=== PATIENT | male | born 1990 | race Caucasian/White ===

== ENCOUNTER 2016-09-24 13:54 | Emergency (ER) | payer SELFPAY ==
[2016-09-24 14:41] VITALS: BMI 25.0
[2016-09-24 14:45] VITALS: BP 114/76; PULSE 62; RESP 18; TEMP 98.1; O2SAT 98
--- NOTE | 2016-09-24 14:58 | ED PDOC ---
Arrival/HPI - General Chief Complaint: Lower Extremity Problem/Injury Time Seen by Provider: 09/24/16 14:57 Historian: Patient - History of Present Illness Narrative History of Present Illness (Text): 09/24/16 14:57 Patient was waiting in ER waiting room for 55 minutes, prior coming to [facility]. 09/24/16 15:08 This 26 yo male , with psh left knee surgery, presents to this ED c/o left knee swelling and painful x 4 days. Patient denies trauma, skin rash, weakness , paresthesias, or abnormal gait. Time/Duration: Other (4 days) Quality: Aching Context: Home Past Medical History - Provider Review Nursing Documentation Reviewed: Yes - Infectious Disease Hx of Infectious Diseases: None - Pulmonary Hx Asthma: Yes - Musculoskeletal/Rheumatological Other/Comment: L Leg surgery - Psychiatric Hx Substance Use: No - Surgical History Hx Orthopedic Surgery: Yes - Anesthesia Hx Anesthesia: Yes Hx Anesthesia Reactions: No Hx Malignant Hyperthermia: No Family/Social History - Physician Review Nursing Documentation Reviewed: Yes Family/Social History: No Known Family HX Smoking Status: Never Smoked Hx Alcohol Use: No Hx Substance Use: No Allergies/Home Meds Allergies/Adverse Reactions: Allergies No Known Allergies Allergy (Verified 09/24/16 14:41) Review of Systems - Review of Systems Constitutional: Normal. absent: Fatigue, Weight Change, Fevers, Night Sweats Eyes: Normal ENT: Normal Respiratory: Normal. absent: SOB, Cough Cardiovascular: Normal. absent: Chest Pain Gastrointestinal: Normal. absent: Abdominal Pain, Nausea, Vomiting Genitourinary Male: Normal. absent: Hematuria Musculoskeletal: Normal Skin: Other (left knee pain and swelling.) Neurological: Normal Endocrine: Normal Hemo/Lymphatic: Normal Psychiatric: Normal Physical Exam Vital Signs Temp Pulse Resp BP Pulse Ox 09/24/16 14:44 98.1 F 62 18 114/76 98 Temperature: Afebrile Blood Pressure: Normal Pulse: Regular Respiratory Rate: Normal Appearance: Positive for: Well-Appearing, Non-Toxic, Comfortable Pain Distress: None Mental Status: Positive for: Alert and Oriented X 3 - Systems Exam Head: Present: Atraumatic, Normocephalic Pupils: Present: PERRL Extroacular Muscles: Present: EOMI Conjunctiva: Present: Normal Mouth: Present: Moist Mucous Membranes Neck: Present: Normal Range of Motion Respiratory/Chest: Present: Clear to Auscultation, Good Air Exchange. No: Respiratory Distress, Accessory Muscle Use Cardiovascular: Present: Regular Rate and Rhythm, Normal S1, S2. No: Murmurs Abdomen: Present: Normal Bowel Sounds. No: Tenderness, Distention, Peritoneal Signs Back: Present: Normal Inspection Upper Extremity: Present: Normal Inspection, Normal ROM, Neurovascularly Intact , Capillary Refill < 2s. No: Cyanosis, Edema Lower Extremity: Present: NORMAL PULSES, Normal ROM, Tenderness, Swelling, Neurovascularly Intact, Capillary Refill < 2 s, Other (Left anterior knee has a scar . no erythema, or skin lesion. No septic knee joit.). No: Edema, CALF TENDERNESS, Cyanosis, Yasmin's Sign, Erythema, Temperature Abnormalties Neurological: Present: GCS=15, CN II-XII Intact, Speech Normal Skin: Present: Warm, Dry, Normal Color. No: Rashes Psychiatric: Present: Alert, Oriented x 3, Normal Insight, Normal Concentration Medical Decision Making - RAD Interpretation Radiology Orders: 09/24/16 15:07 KNEE WITH PATELLA LEFT 3 VIEW [RAD] Stat - Medication Orders Current Medication Orders: Discontinued Medications Ketorolac Tromethamine (Toradol) 30 mg IM STAT STA Stop: 09/24/16 15:08 Last Admin: 09/24/16 15:25 Dose: 30 mg Disposition/Present on Arrival - Present on Arrival Any Indicators Present on Arrival: No History of DVT/PE: No History of Uncontrolled Diabetes: No Urinary Catheter: No History of Decub. Ulcer: No History Surgical Site Infection Following: None - Disposition Have Diagnosis and Disposition been Completed?: Yes Diagnosis: Knee pain Disposition: HOME/ ROUTINE Disposition Time: 16:26 Patient Plan: Discharge Condition: GOOD Discharge Instructions (ExitCare): Knee Sprain (ED) Additional Instructions: Call private doctor for follow up visit in 1-2 days. Keep knee elevated, ice, rest, micheal for at least 5 days. Remove micheal bandage at bedtime. Return to emergency if symptoms worsen. Prescriptions: Famotidine [Pepcid] 40 mg PO DAILY #10 tablet Naproxen 500 mg PO BID #14 tab Referrals: PCP,NO [Primary Care Provider] - Follow up with primary Jcarlos Ramires DO [Staff Provider] - Follow up with primary Minal Pennington MD [Staff Provider] - Follow up with primary Forms: WORK NOTE
--- NOTE | 2016-09-24 16:30 | RAD ---
PROCEDURE: Left Knee Radiographs. HISTORY: Pain. COMPARISON: None. FINDINGS: BONES: Normal. No fracture. JOINTS: Normal. No osteoarthritis. JOINT EFFUSION: None. OTHER FINDINGS: The patella is unremarkable. Surgical hardware is seen in the proximal tibia IMPRESSION: Normal radiographs of the left knee.
== END 2016-09-24 16:31 | disposition home or self-care (01) ==
LOC: ED 13:54
DX: M25.562 Pain in left knee (principal)
CPT/HCPCS: 73562; 96372; 99283; J1885

== ENCOUNTER 2017-04-09 21:41 | Emergency (ER) | payer SELFPAY ==
[2017-04-09 21:42] VITALS: BMI 25.0
[2017-04-09 22:37] VITALS: RESP 18; O2SAT 99
--- NOTE | 2017-04-09 22:42 | ED PDOC ---
Arrival/HPI - General Historian: Patient <Lj Patel - Last Filed: 04/10/17 01:58> <Nigel Jackson - Last Filed: 04/10/17 19:54> - General Chief Complaint: Cough, Cold, Congestion Time Seen by Provider: 04/09/17 22:42 - History of Present Illness Narrative History of Present Illness (Text): 04/09/17 22:42 27 y/o male, no significant pmh, nkda, c/o coughing/bodyache/chest congestion and chest pain x 3 days. Pt. stated that he has not been feeling well for the past 2-3 days, associated with the cough and bodyache with rt. sided chest pain , +pleuritic pain, no recent traveling, no alcohol or drug abuse, no night sweat , no dizziness, no rash, no other medical or psychological complaints. (Lj Patel) Past Medical History - Provider Review Nursing Documentation Reviewed: Yes - Infectious Disease Hx of Infectious Diseases: None - Pulmonary Hx Asthma: Yes - Musculoskeletal/Rheumatological Other/Comment: L Leg surgery - Psychiatric Hx Substance Use: Yes - Surgical History Hx Orthopedic Surgery: Yes - Anesthesia Hx Anesthesia: Yes Hx Anesthesia Reactions: No Hx Malignant Hyperthermia: No <Lj Patel - Last Filed: 04/10/17 01:58> Family/Social History - Physician Review Nursing Documentation Reviewed: Yes Family/Social History: Unknown Family HX Smoking Status: Never Smoked Hx Alcohol Use: No Hx Substance Use: Yes Substance used: MJ <Lj Patel - Last Filed: 04/10/17 01:58> Family/Social History: Unknown Family HX <Nigel Jackson - Last Filed: 04/10/17 19:54> Allergies/Home Meds <Lj Patel - Last Filed: 04/10/17 01:58> <Nigel Jackson - Last Filed: 04/10/17 19:54> Allergies/Adverse Reactions: Allergies No Known Allergies Allergy (Verified 09/24/16 14:41) Review of Systems - Review of Systems Constitutional: Fatigue. absent: Fevers Eyes: absent: Vision Changes ENT: absent: Hearing Changes Respiratory: Cough. absent: SOB, Sputum, Wheezing Cardiovascular: Chest Pain Gastrointestinal: absent: Abdominal Pain, Diarrhea, Nausea, Vomiting Musculoskeletal: Myalgias. absent: Arthralgias, Back Pain Skin: absent: Rash, Pruritis Psychiatric: absent: Anxiety, Depression, Suicidal Ideation <Lj Patel - Last Filed: 04/10/17 01:58> Physical Exam Vital Signs Reviewed: Yes Temperature: Afebrile Blood Pressure: Normal Pulse: Regular Respiratory Rate: Normal Appearance: Positive for: Well-Appearing, Non-Toxic, Comfortable Pain Distress: Moderate Mental Status: Positive for: Alert and Oriented X 3 - Systems Exam Head: Present: Atraumatic, Normocephalic Pupils: Present: PERRL Extroacular Muscles: Present: EOMI Conjunctiva: Present: Normal Ears: Present: NORMAL TM, Normal Canal. No: Erythema Mouth: Present: Moist Mucous Membranes Neck: Present: Normal Range of Motion Respiratory/Chest: Present: Clear to Auscultation, Good Air Exchange. No: Respiratory Distress, Accessory Muscle Use, Wheezes, Decreased Breath Sounds, Rales, Retracting, Tachypneic, Tender to Palpation Cardiovascular: Present: Regular Rate and Rhythm, Normal S1, S2. No: Murmurs Abdomen: Present: Normal Bowel Sounds. No: Tenderness, Distention, Peritoneal Signs, Rebound, Guarding Back: Present: Normal Inspection Upper Extremity: Present: Normal Inspection. No: Cyanosis, Edema Lower Extremity: Present: Normal Inspection. No: Edema Neurological: Present: GCS=15, Speech Normal, Motor Func Grossly Intact, Gait Normal, Memory Normal Skin: Present: Warm, Dry, Normal Color. No: Rashes Psychiatric: Present: Alert, Oriented x 3, Normal Insight, Normal Concentration <Lj Patel Q - Last Filed: 04/10/17 01:58> <Nigel Jackson - Last Filed: 04/10/17 19:54> Vital Signs Temp Pulse Resp BP Pulse Ox 04/10/17 02:43 98.1 F 76 18 131/66 99 04/09/17 23:42 74 19 138/72 100 04/09/17 22:24 98.4 F 78 18 145/82 99 Medical Decision Making <Lj Patel - Last Filed: 04/10/17 01:58> <Nigel Jackson - Last Filed: 04/10/17 19:54> ED Course and Treatment: 04/09/17 23:10 -labs/cardiac enzyme -ekg -cxr -IVF/toradol -Observe and reassess 04/10/17 01:58 -EKG: NSR @ 81 BPM, early repolarizations noted on the V2V6, no ST elevation or depression, no T wave inversion. -Chest xray show no active disease -Labs show no acute findings except dimer 600, CTA ordered as he has chest pain with cough -Negative flu -CTA ordered and pending result -Case endorsed and discussed with DR. Jackson, he will follow up the radiology study/labs and dispo for the patient. (Lj Patel) CT Angiography Chest With Intravenous Contrast FINDINGS: LIMITATIONS: Mild/moderate respiratory motion artifact. PULMONARY ARTERIES: Exam is somewhat limited for the detection of pulmonary emboli secondary to respiratory motion. Allowing for this, no definite pulmonary emboli are seen. AORTA: No evidence of aortic dissection. LUNGS: Incidental multiple scattered noncalcified bilateral pulmonary nodules. At least 7 are seen, with the largest measuring 7 x 3 mm, image 56/series 4. In low-risk patients ( minimal or absent history of smoking or other known risk factors), no follow-up is necessary. For high-risk patients (history of smoking or other known risk factors), an optional chest CT at 12 months could be performed. No evidence of significant focal consolidation/infiltrate in the lungs. No evidence of diffuse pulmonary vascular congestion. PLEURAL SPACE: No pneumothorax or pleural effusions seen. HEART: No evidence of significant pericardial effusion. BONES/JOINTS: Mild scoliotic curvature of the spine. SOFT TISSUES: No acute abnormality of the visualized soft tissues seen. LYMPH NODES: Multiple small lymph nodes seen in the right hilum, none appearing pathologically enlarged. This is a nonspecific finding. No evidence of diffuse pathologic lymphadenopathy. IMPRESSION: - No evidence of pulmonary embolism or other significant acute abnormality in the chest. - Incidental subcentimeter pulmonary nodules, the largest measuring 5 mm. See recommendations above. - See above for remaining findings. Dictated and Authenticated by: Moira Payan MD 04/10/2017 2:23 AM Eastern Time ([place] & [place]) (Nigel Jackson) - Lab Interpretations Lab Results: 04/09/17 23:30 04/09/17 23:30 Lab Results 04/09/17 23:30: D-Dimer, Quantitative 600 H 04/09/17 23:30: WBC 7.4, RBC 4.84, Hgb 14.7, Hct 44.1, MCV 91.1, MCH 30.4, MCHC 33.3, RDW 13.0, Plt Count 163, MPV 12.6 H, Gran % 56.1, Lymph % (Auto) 21.6 L, [place] % (Auto) 17.9 H, Eos % (Auto) 4.0, Baso % (Auto) 0.4, Gran # 4.17, Lymph # (Auto) 1.6, [place] # (Auto) 1.3 H, Eos # (Auto) 0.3, Baso # (Auto) 0.03 04/09/17 23:30: Sodium 137, Potassium 4.2, Chloride 101, Carbon Dioxide 24, Anion Gap 16, BUN 17, Creatinine 0.9, Est GFR ( Amer) > 60, Est GFR (Non- Af Amer) > 60, Random Glucose 87, Calcium 9.8, Total Bilirubin 1.4 H, AST 40, ALT 45, Alkaline Phosphatase 86, Lactate Dehydrogenase 520, Total Creatine Kinase 119, Troponin I < 0.01, NT-Pro-B Natriuret Pep 31.8, Total Protein 8.0, Albumin 4.5, Globulin 3.5, Albumin/Globulin Ratio 1.3 04/09/17 23:30: Influenza Typ A,B (EIA) Negative for flu a/b - RAD Interpretation Radiology Orders: 04/09/17 22:55 CHEST TWO VIEWS (PA/LAT) [RAD] Stat 04/09/17 23:58 ANGIO CHEST PE PROTOCOL [CT] Stat - PA / SURVEY OPERATIONS DIRECTOR / Resident Statement / has reviewed & agrees with the documentation as recorded. <Lj Patel - Last Filed: 04/10/17 01:58> - PA / SURVEY OPERATIONS DIRECTOR / Resident Statement / has examined the patient and agrees with the treatment plan. - Scribe Statement The provider has reviewed the documentation as recorded by the Scribe <Nigel Jackson - Last Filed: 04/10/17 19:54> Disposition/Present on Arrival - Present on Arrival Any Indicators Present on Arrival: No History of DVT/PE: No History of Uncontrolled Diabetes: No Urinary Catheter: No History of Decub. Ulcer: No History Surgical Site Infection Following: None - Disposition Have Diagnosis and Disposition been Completed?: Yes Disposition Time: 00:27 <Lj Patel - Last Filed: 04/10/17 01:58> - Present on Arrival Any Indicators Present on Arrival: No History of DVT/PE: No History of Uncontrolled Diabetes: No Urinary Catheter: No History of Decub. Ulcer: No History Surgical Site Infection Following: None - Disposition Have Diagnosis and Disposition been Completed?: Yes Patient Plan: Discharge <Nigel Jackson - Last Filed: 04/10/17 19:54> - Disposition Diagnosis: Pleuritic chest pain Disposition: HOME/ ROUTINE Condition: GOOD Discharge Instructions (ExitCare): Chest Pain (ED) Additional Instructions: Jay- Sorry that you are having this pain. All of your tests, including the CT Scan are essentially normal. Motrin is probably best for pain. Take it with food. Return to us if worse. Follow up with your doctors later this week. Best- Dr. Nigel Jackson Prescriptions: Ibuprofen [Motrin Tab] 800 mg PO TID #30 tab Referrals: PCP,NO [Primary Care Provider] - Follow up with primary Forms: [employer] (Italian)
[2017-04-09 23:50] LABS: BASO # 0.03 K/mm3 (0.0-2.0); BASO % 0.4 % (0.0-3.0); EOS # 0.3 (0.0-0.7); GRAN # 4.17 (1.4-6.5); GRAN % 56.1 % (50.0-68.0); HEMOGLOBIN 14.7 g/dL (14.0-18.0); LYMPH # 1.6 (1.2-3.4); LYMPH % 21.6 % (22.0-35.0); MEAN CELL VOLUME 91.1 fl (80.0-105.0); MEAN CORPUSCULAR HEMOGLOBIN 30.4 pg (25.0-35.0); MEAN CORPUSCULAR HGB CONC 33.3 g/dl (31.0-37.0); MEAN PLATELET VOLUME 12.6 fl (7.0-11.0); MONO # 1.3 (0.1-0.6); MONO % 17.9 % (1.0-6.0); RBC 4.84 10^6/uL (3.5-6.1); WHITE BLOOD COUNT 7.4 10^3/ul (4.5-11.0)
[2017-04-09 23:54] LABS: ALB/GLOB RATIO 1.3 (1.1-1.8); ALBUMIN 4.5 g/dL (3.0-4.8); ALT/SGPT 45 U/L (7-56); AST/SGOT 40 U/L (17-59); BLOOD UREA NITROGEN 17 mg/dL (7-21); CALCIUM 9.8 mg/dL (8.4-10.5); GFR AFRICAN-AMERICAN > 60; GFR NON-AFRICAN AMERICAN > 60
[2017-04-10 00:06] LABS: B-TYPE NATRIURETIC PEPTIDE 31.8 pg/mL (0-450); TROPONIN I < 0.01 ng/mL
[2017-04-10] MEDS ORDERED: Iodixanol 320 MG/ML 100 ML BOTTLE IV ONE (00:45)
--- NOTE | 2017-04-10 02:23 | CT ---
EXAM: CT Angiography Chest With Intravenous Contrast EXAM DATE/TIME: 04/09/2017 11:58 PM CLINICAL HISTORY: 27 years old, male; Pain; Chest pain; Additional info: Chest pain , elevated dimer TECHNIQUE: Axial computed tomographic angiography images of the chest with intravenous contrast using pulmonary embolism protocol. All CT scans at this facility use one or more dose reduction techniques, viz.: automated exposure control; ma/kV adjustment per patient size (including targeted exams where dose is matched to indication; i.e. head); or iterative reconstruction technique. MIP reconstructed images were created and reviewed. Coronal and sagittal reformatted images were created and reviewed. CONTRAST: 96 mL of VISI 320 administered intravenously. COMPARISON: Prior chest radiographs of 04/09/2017. FINDINGS: LIMITATIONS: Mild/moderate respiratory motion artifact. PULMONARY ARTERIES: Exam is somewhat limited for the detection of pulmonary emboli secondary to respiratory motion. Allowing for this, no definite pulmonary emboli are seen. AORTA: No evidence of aortic dissection. LUNGS: Incidental multiple scattered noncalcified bilateral pulmonary nodules. At least 7 are seen, with the largest measuring 7 x 3 mm, image 56/series 4. In low-risk patients (minimal or absent history of smoking or other known risk factors), no follow-up is necessary. For high-risk patients (history of smoking or other known risk factors), an optional chest CT at 12 months could be performed. No evidence of significant focal consolidation/infiltrate in the lungs. No evidence of diffuse pulmonary vascular congestion. PLEURAL SPACE: No pneumothorax or pleural effusions seen. HEART: No evidence of significant pericardial effusion. BONES/JOINTS: Mild scoliotic curvature of the spine. SOFT TISSUES: No acute abnormality of the visualized soft tissues seen. LYMPH NODES: Multiple small lymph nodes seen in the right hilum, none appearing pathologically enlarged. This is a nonspecific finding. No evidence of diffuse pathologic lymphadenopathy. IMPRESSION: - No evidence of pulmonary embolism or other significant acute abnormality in the chest. - Incidental subcentimeter pulmonary nodules, the largest measuring 5 mm. See recommendations above. - See above for remaining findings.
[2017-04-10 02:44] VITALS: BP 131/66; PULSE 76; TEMP 98.1
--- NOTE | 2017-04-10 10:12 | RAD ---
HISTORY: cough/chest pain COMPARISON: No prior. TECHNIQUE: Chest PA and lateral FINDINGS: LUNGS: No active pulmonary disease. PLEURA: No significant pleural effusion identified. No pneumothorax apparent. CARDIOVASCULAR: Normal. OSSEOUS STRUCTURES: No significant abnormalities. VISUALIZED UPPER ABDOMEN: Normal. OTHER FINDINGS: None. IMPRESSION: No active disease.
--- NOTE | 2017-04-10 18:11 | CARD ---
APPROVED REPORT EKG Measurement Heart [id number] <Conclusion> Normal sinus rhythm Possible Left atrial enlargement Early repolarization Borderline ECG
== END 2017-04-10 02:49 | disposition home or self-care (01) ==
LOC: ED 21:41
DX: R07.81 Pleurodynia (principal)
CPT/HCPCS: 71046; 71275; 80053; 82550; 83615; 83880; 84484; 85025; 85378; 87804; 93005; 99283; Q9967